=== PATIENT | female | born 1970 | race Caucasian/White ===

== ENCOUNTER 2017-11-22 08:36 | Emergency (ER) | payer MEDICAID ==
[~2017-11-22] VITALS: Ht 170.2 cm; Wt 83.9 kg
[~2017-11-22 08:36] MED LIST: ABILIFY15 MG PO; BAYER CHEWABLE81 MG PO; BRINTELLIX10 MG PO; CALCIUM PO; CLONAZEPAM 1 MG1 M1 PO; COPAXONE40 MG/1 ML SQ; FIBER1 GM PO; GEMFIBROZIL 60600 MG PO; IMITREX100 MG PO; INDERAL80 MG PO; IRON325 PO; JANUVIA100 MG PO; KLOR-CON 10 ER10 MEQ PO; LEVOXYL50 MCG PO; LIPITOR10 MG PO; METFORMIN HCL500 MG PO; NOVOLOG100 UNIT/1 SUBQ; OMEGA-31000 M1 PO; OXYBUTYNIN 5 MG5 M2 PO; TOUJEO SOL300 UNIT/1 SQ; VENLAFAXIN75 MG/1 T2 PO; VITAMIN D1000 UNI1 PO
[2017-11-22 08:58] VITALS: BP 134/95
== END 2017-11-22 08:58 | disposition home or self-care (01) ==
LOC: M.ERS 08:36
DX: Z71.1 Person with feared health complaint in whom no diagnosis is made (principal); G43.909 Migraine, unspecified, not intractable, without status migrainosus; E78.5 Hyperlipidemia, unspecified; E03.9 Hypothyroidism, unspecified; E11.65 Type 2 diabetes mellitus with hyperglycemia; Z88.1 Allergy status to other antibiotic agents; Z90.710 Acquired absence of both cervix and uterus; Z79.4 Long term (current) use of insulin

== ENCOUNTER → 2018-09-23 | Outpatient (CLI) | payer OTHER | LOC: M.CT 07:47 | DX: Z13.6 Encounter for screening for cardiovascular disorders (principal) ==

== ENCOUNTER → 2018-10-01 | Outpatient (CLI) | payer MEDICAID | LOC: M.RAD 09-28 09:55 | DX: N63.20 Unspecified lump in the left breast, unspecified quadrant (principal); R59.9 Enlarged lymph nodes, unspecified ==